=== PATIENT | female | born 1935 | race Caucasian/White ===

== ENCOUNTER 2019-12-20 11:04 | Emergency (ER) | payer OTHER ==
[~2019-12-20] VITALS: Ht 165.1 cm; Wt 73.9 kg
[2019-12-20 11:25] VITALS: BP 118/50
== END 2019-12-20 14:02 | disposition home or self-care (01) ==
LOC: ER 11:04
DX: S52.572A Other intraarticular fracture of lower end of left radius, initial encounter for closed fracture (principal); S93.401A Sprain of unspecified ligament of right ankle, initial encounter; S50.12XA Contusion of left forearm, initial encounter; E78.5 Hyperlipidemia, unspecified; I10 Essential (primary) hypertension; W01.0XXA Fall on same level from slipping, tripping and stumbling without subsequent striking against object, initial encounter; Y93.89 Activity, other specified; Y92.89 Other specified places as the place of occurrence of the external cause; Y99.8 Other external cause status
CPT/HCPCS: 73090; 73110; 73610

== ENCOUNTER 2022-08-24 20:12 | Inpatient (IN) | payer OTHER ==
[~2022-08-24] VITALS: Ht 165.1 cm; Wt 78.0 kg
[2022-08-24 22:03] LABS: Basophils # (auto) 0 10 ^3/uL (0-0.2); Basophils % (auto) 0.2 % (0.0-2.0); Eosinophils # (auto) 0 10 ^3/uL (0-0.8); Eosinophils % (auto) 0.3 % (0.0-7.0); Hematocrit 34.7 % (36.0-46.0); Hemoglobin 11.3 g/dL (12.2-16.2); Lymphocytes # (auto) 0.5 10 ^3/uL (0.4-5.4); Lymphocytes % (auto) 5.3 % (10.0-50.0); Mean Corpuscular Hemoglobin 28.8 pg (28.0-32.0); Mean Corpuscular Hgb Conc. 32.7 g/dL (32.0-36.0); Monocytes # (auto) 0.8 10 ^3/uL (0-1.3); Monocytes % (auto) 8.4 % (0.0-12.0); Neutrophils # (auto) 7.7 10 ^3/uL (1.6-8.6); Neutrophils % (auto) 85.8 % (37.0-80.0); Red Blood Cells 3.94 10^6/uL (4.0-5.20); Red Cell Distribution Width 15.3 % (11.8-14.3)
[2022-08-24 22:18] LABS: Albumin 3.6 g/dL (3.4-5.0); BUN/Creatinine Ratio 17.1; Calcium 8.9 mg/dL (8.5-10.1); Potassium 3.6 mmol/L (3.5-5.1)
[2022-08-24 22:21] LABS: Bilirubin, Total 0.9 mg/dL (0.2-1.0)
[2022-08-24] MEDS ORDERED: dilTIAZem 25 MG/5 ML VIAL IV ONE (23:30)
[2022-08-25] VITALS (46 sets, daily range): BP systolic 73–155; BP diastolic 36–76
[2022-08-25] MEDS ORDERED: dilTIAZem 125mg/125ml BAG KIT 125 ML IV ONE ×2 (00:04→00:15)
[2022-08-25] MEDS ORDERED: ACETAMINOPHEN 325 MG TAB PO ONE (02:00)
[2022-08-25] MEDS ORDERED: dilTIAZem 125mg/125ml BAG KIT 100 ML IV SCH (02:30)
[2022-08-25] MEDS ORDERED: ONDANSETRON HCL 4 MG/2 ML VIAL IV PRN (02:30)
[2022-08-25] MEDS ORDERED: NITROGLYCERIN 0.4 MG SL TAB SL PRN (02:30)
[2022-08-25] MEDS ORDERED: MORPHINE SULFATE INJ 2 MG/ml SYRG IV PRN (02:30)
[2022-08-25 04:01] LABS: Urine Bacteria NONE SEEN /hpf (None Seen); Urine Blood Negative /uL (Negative); Urine Specific Gravity 1.025 (1.001-1.035); Urine WBC 4 /hpf (0 - 5)
[2022-08-25] MEDS: LEVOTHYROXINE SODIUM 25 MCG TAB PO SCH (06:47)
[2022-08-25] MEDS ORDERED: METO25TA93 PO (07:22)
[2022-08-25] MEDS ORDERED: ATOR10TA52 PO (07:22)
[2022-08-25] MEDS ORDERED: FENO48TA12 PO (07:22)
[2022-08-25] MEDS ORDERED: TIOT17SP INH (07:22)
[2022-08-25] MEDS ORDERED: ALBU108A5 INH (07:22)
[2022-08-25] MEDS ORDERED: LEV75T PO (07:22)
[2022-08-25 08:51] LABS: Basophils # (auto) 0.1 10 ^3/uL (0-0.2); Basophils % (auto) 0.7 % (0.0-2.0); Eosinophils # (auto) 0 10 ^3/uL (0-0.8); Eosinophils % (auto) 0.2 % (0.0-7.0); Hemoglobin 11.2 g/dL (12.2-16.2); Lymphocytes # (auto) 0.9 10 ^3/uL (0.4-5.4); Lymphocytes % (auto) 9.7 % (10.0-50.0); Mean Corpuscular Hemoglobin 28.9 pg (28.0-32.0); Mean Corpuscular Hgb Conc. 33.1 g/dL (32.0-36.0); Mean Corpuscular Volume 87.4 fL (80.0-100.0); Monocytes # (auto) 1.1 10 ^3/uL (0-1.3); Monocytes % (auto) 12.4 % (0.0-12.0); Neutrophils # (auto) 7.1 10 ^3/uL (1.6-8.6); Red Blood Cells 3.89 10^6/uL (4.0-5.20); Red Cell Distribution Width 15.4 % (11.8-14.3); White Blood Cell 9.2 10^3/uL (4.4-10.8)
[2022-08-25] MEDS: LOSARTAN POTASSIUM 50 MG TAB PO SCH (09:45)
[2022-08-25 09:59] LABS: Alanine Aminotransferase 18 U/L (13-56); Albumin 3.4 g/dL (3.4-5.0); Alkaline Phosphatase 44 U/L (45-117); Anion Gap 8 (5-15); Aspartate Aminotransferase 20 U/L (15-37); Bilirubin, Total 1.1 mg/dL (0.2-1.0); Blood Urea Nitrogen 32 mg/dL (7-18); Calcium 9.1 mg/dL (8.5-10.1); Carbon Dioxide 31 mmol/L (21-32); Chloride 97 mmol/L (98-107); GFR African American 31 mL/min; GFR Non-African American 25 mL/min; Glucose 107 mg/dL (74-106); Potassium 3.8 mmol/L (3.5-5.1); Sodium 136 mmol/L (136-145); Total Protein 6.7 g/dL (6.4-8.2)
[2022-08-25 10:00] LABS: Cholesterol 140 mg/dL (< 200); HDL Cholesterol 80 mg/dL (40-59); LDL Cholesterol 61 mg/dL (< 100); Magnesium 1.9 mg/dL (1.6-2.6); Triglycerides 42 mg/dL (< 150)
[2022-08-25] MEDS ORDERED: METOPROLOL SUCCINATE XL 50 MG TAB PO SCH (10:00)
[2022-08-25] MEDS ORDERED: PANTOPRAZOLE 40 MG TAB PO SCH (10:00)
[2022-08-25] MEDS: ASPirin 81 mg TAB PO SCH (10:03)
[2022-08-25] MEDS: HEPARIN SODIUM (PORCINE) 5000 UNITS/ML 1ML VIAL SC SCH ×2 (10:13→22:24)
[2022-08-25] MEDS ORDERED: POTASSIUM CHL 20 Meq TABLET PO ONE (11:00)
[2022-08-25] MEDS ORDERED: BACLOFEN 10 MG TAB PO PRN (11:00)
[2022-08-25] MEDS ORDERED: AMIODARONE HCL 200 MG TAB PO ONE (11:45)
[2022-08-25] MEDS: MAGNESIUM SULFATE 1GM/100ML 100 ML IV SCH ×2 (13:18→16:08)
[2022-08-25] MEDS: HCTZ 25 MG TAB PO SCH (14:10)
[2022-08-25] MEDS ORDERED: MAGNESIUM SULFATE 1GM/100ML 100 ML IV SCH (16:00)
[2022-08-25] MEDS ORDERED: ANAS1TAB7 PO (16:42)
[2022-08-25] MEDS ORDERED: AMIODARONE HCL 200 MG TAB PO SCH (22:00)
[2022-08-25] MEDS: ATORVASTATIN 20 MG TAB PO SCH (22:17)
[2022-08-26] VITALS (18 sets, daily range): BP systolic 87–157; BP diastolic 41–107
[2022-08-26 04:00] LABS: Basophils # (auto) 0 10 ^3/uL (0-0.2); Basophils % (auto) 0.2 % (0.0-2.0); Eosinophils # (auto) 0.2 10 ^3/uL (0-0.8); Eosinophils % (auto) 2.4 % (0.0-7.0); Hematocrit 30.6 % (36.0-46.0); Hemoglobin 10.4 g/dL (12.2-16.2); Lymphocytes # (auto) 0.7 10 ^3/uL (0.4-5.4); Lymphocytes % (auto) 9.4 % (10.0-50.0); Mean Corpuscular Hemoglobin 29.2 pg (28.0-32.0); Mean Corpuscular Hgb Conc. 33.8 g/dL (32.0-36.0); Mean Corpuscular Volume 86.3 fL (80.0-100.0); Monocytes # (auto) 0.9 10 ^3/uL (0-1.3); Monocytes % (auto) 12.4 % (0.0-12.0); Neutrophils # (auto) 5.7 10 ^3/uL (1.6-8.6); Neutrophils % (auto) 75.6 % (37.0-80.0); Red Blood Cells 3.55 10^6/uL (4.0-5.20); Red Cell Distribution Width 15.2 % (11.8-14.3); White Blood Cell 7.5 10^3/uL (4.4-10.8)
[2022-08-26 04:23] LABS: Albumin 2.9 g/dL (3.4-5.0); Calcium 8.8 mg/dL (8.5-10.1); Magnesium 2.9 mg/dL (1.6-2.6); Potassium 3.6 mmol/L (3.5-5.1)
[2022-08-26 04:26] LABS: Bilirubin, Total 0.7 mg/dL (0.2-1.0); Total Protein 6.6 g/dL (6.4-8.2)
[2022-08-26] MEDS: LEVOTHYROXINE SODIUM 25 MCG TAB PO SCH (06:12)
[2022-08-26] MEDS: ASPirin 81 mg TAB PO SCH (09:49)
[2022-08-26] MEDS: LOSARTAN POTASSIUM 50 MG TAB PO SCH (09:59)
[2022-08-26] MEDS: HCTZ 25 MG TAB PO SCH (09:59)
[2022-08-26] MEDS: AMIODARONE HCL 200 MG TAB PO SCH (10:00)
[2022-08-26] MEDS: HEPARIN SODIUM (PORCINE) 5000 UNITS/ML 1ML VIAL SC SCH ×2 (10:02→22:02)
[2022-08-26] MEDS ORDERED: cefTRIAXone 1GM/50ML D5W 50 ML IV ONE (11:30)
[2022-08-26] MEDS: ANASTRAZOLE 1 MG TABLET PO SCH (14:00)
[2022-08-26 14:05] LABS: Protein, Urine 23.5 mg/dL (0.0-11.9)
[2022-08-26] MEDS ORDERED: dilTIAZem 25 MG/5 ML VIAL IV ONE (17:30)
[2022-08-26] MEDS: SODIUM CHLORIDE 0.9% 1,000 ML IV SCH (18:00)
[2022-08-26] MEDS ORDERED: POTASSIUM CHL 20 Meq TABLET PO ONE (18:00)
[2022-08-26] MEDS ORDERED: METOPROLOL TARTRATE 1MG/1ML-5ML VIAL IV ONE (21:30)
[2022-08-26] MEDS: ATORVASTATIN 20 MG TAB PO SCH (22:01)
[2022-08-26] MEDS ORDERED: ATROPINE SULFATE 0.4 MG/1 ML VIAL ONE (22:35)
[2022-08-27] VITALS (42 sets, daily range): BP systolic 98–169; BP diastolic 49–100
[2022-08-27] MEDS: SODIUM CHLORIDE 0.9% 1,000 ML IV SCH (03:28)
[2022-08-27 04:15] LABS: Basophils # (auto) 0 10 ^3/uL (0-0.2); Basophils % (auto) 0.5 % (0.0-2.0); Eosinophils # (auto) 0.2 10 ^3/uL (0-0.8); Eosinophils % (auto) 2.9 % (0.0-7.0); Hematocrit 31.2 % (36.0-46.0); Hemoglobin 10.2 g/dL (12.2-16.2); Lymphocytes # (auto) 0.5 10 ^3/uL (0.4-5.4); Lymphocytes % (auto) 7.4 % (10.0-50.0); Mean Corpuscular Hemoglobin 28.9 pg (28.0-32.0); Mean Corpuscular Hgb Conc. 32.7 g/dL (32.0-36.0); Mean Corpuscular Volume 88.4 fL (80.0-100.0); Monocytes # (auto) 0.6 10 ^3/uL (0-1.3); Monocytes % (auto) 9.6 % (0.0-12.0); Neutrophils # (auto) 5.1 10 ^3/uL (1.6-8.6); Neutrophils % (auto) 79.6 % (37.0-80.0); Nucleated Red Blood Cells % 0.1 %; Red Blood Cells 3.53 10^6/uL (4.0-5.20); Red Cell Distribution Width 15.1 % (11.8-14.3); White Blood Cell 6.4 10^3/uL (4.4-10.8)
[2022-08-27 04:29] LABS: BUN/Creatinine Ratio 16.8; Potassium 4.8 mmol/L (3.5-5.1)
[2022-08-27] MEDS: DOPamine 1600MCG/ML D5W 250 ML IV SCH (05:45)
[2022-08-27] MEDS: LEVOTHYROXINE SODIUM 25 MCG TAB PO SCH (06:37)
[2022-08-27] MEDS: cefTRIAXone 1GM/50ML D5W 50 ML IV SCH (09:47)
[2022-08-27] MEDS: ASPirin 81 mg TAB PO SCH (09:55)
[2022-08-27] MEDS: AMIODARONE HCL 200 MG TAB PO SCH ×2 (09:56→10:00)
[2022-08-27] MEDS: HEPARIN SODIUM (PORCINE) 5000 UNITS/ML 1ML VIAL SC SCH ×2 (09:56→22:27)
[2022-08-27] MEDS ORDERED: amLODIPine BESYLATE 5 MG TAB PO SCH (10:00)
[2022-08-27] MEDS: ANASTRAZOLE 1 MG TABLET PO SCH (11:00)
[2022-08-27] MEDS ORDERED: ALBUAER3 IN (11:37)
[2022-08-27] MEDS ORDERED: VANCOMYCIN HCL 1000 MG VL ONE (13:34)
[2022-08-27] MEDS ORDERED: MIDAZOLAM HCL 2MG/2ML 2ml VIAL (1mg/ml) ONE (13:35)
[2022-08-27] MEDS ORDERED: LIDOCAINE 2%HCL (LOCAL ANESTH.) INJ 20ML MDV ONE (13:35)
[2022-08-27] MEDS ORDERED: fentaNYL CITRATE 100 MCG/2 ML VL ONE (13:35)
[2022-08-27] MEDS ORDERED: VANCOMYCIN 1GM/250ML 250 ML IV ONE (13:35)
[2022-08-27] MEDS ORDERED: LOSA100T25 PO (13:39)
[2022-08-27] MEDS ORDERED: NITROGLYCERIN 0.4MG/DOSE SPRAY 4.9GM ONE (13:50)
[2022-08-27] MEDS ORDERED: ENALAPRILAT 1.25 MG/ML-1ML VIAL IV ONE (14:08)
[2022-08-27] MEDS ORDERED: FUROSEMIDE 20 MG/2 ML VIAL ONE (14:18)
[2022-08-27] MEDS ORDERED: ALBUTEROL SULF 2.5 MG/0.5ML(0.5%) NEB SOLN NEB ONE (14:45)
[2022-08-27] MEDS ORDERED: METOPROLOL SUCCINATE XL 50 MG TAB PO ONE (16:30)
[2022-08-27] MEDS: ATORVASTATIN 20 MG TAB PO SCH (22:22)
[2022-08-28] VITALS (15 sets, daily range): BP systolic 110–179; BP diastolic 58–137
[2022-08-28] MEDS: DOPamine 1600MCG/ML D5W 250 ML IV SCH (00:48)
[2022-08-28] MEDS: ACETAMINOPHEN 325 MG TAB PO PRN ×2 (01:50→22:10)
[2022-08-28 04:02] LABS: Basophils # (auto) 0 10 ^3/uL (0-0.2); Basophils % (auto) 0.7 % (0.0-2.0); Eosinophils # (auto) 0.3 10 ^3/uL (0-0.8); Eosinophils % (auto) 6.3 % (0.0-7.0); Hemoglobin 10.5 g/dL (12.2-16.2); Lymphocytes # (auto) 0.6 10 ^3/uL (0.4-5.4); Lymphocytes % (auto) 11.6 % (10.0-50.0); Mean Corpuscular Hemoglobin 28.6 pg (28.0-32.0); Mean Corpuscular Hgb Conc. 32.8 g/dL (32.0-36.0); Mean Corpuscular Volume 87.2 fL (80.0-100.0); Monocytes # (auto) 0.6 10 ^3/uL (0-1.3); Monocytes % (auto) 11.3 % (0.0-12.0); Neutrophils # (auto) 3.8 10 ^3/uL (1.6-8.6); Neutrophils % (auto) 70.1 % (37.0-80.0); Nucleated Red Blood Cells % 0.2 %; Red Blood Cells 3.67 10^6/uL (4.0-5.20); Red Cell Distribution Width 15.1 % (11.8-14.3); White Blood Cell 5.4 10^3/uL (4.4-10.8)
[2022-08-28 04:19] LABS: Potassium 4.2 mmol/L (3.5-5.1)
[2022-08-28 04:25] LABS: Albumin 2.8 g/dL (3.4-5.0); BUN/Creatinine Ratio 18.7; Bilirubin, Total 0.7 mg/dL (0.2-1.0); Magnesium 2.1 mg/dL (1.6-2.6)
[2022-08-28] MEDS: LEVOTHYROXINE SODIUM 25 MCG TAB PO SCH (06:35)
[2022-08-28] MEDS: AMIODARONE HCL 200 MG TAB PO SCH ×2 (10:25→22:08)
[2022-08-28] MEDS: ASPirin 81 mg TAB PO SCH (10:25)
[2022-08-28] MEDS: ANASTRAZOLE 1 MG TABLET PO SCH (10:26)
[2022-08-28] MEDS: cefTRIAXone 1GM/50ML D5W 50 ML IV SCH (10:26)
[2022-08-28] MEDS: HEPARIN SODIUM (PORCINE) 5000 UNITS/ML 1ML VIAL SC SCH (10:27)
[2022-08-28] MEDS: METOPROLOL SUCCINATE XL 50 MG TAB PO SCH (16:07)
[2022-08-28] MEDS: APIXABAN 2.5 MG TAB PO SCH (22:09)
[2022-08-28] MEDS: ATORVASTATIN 20 MG TAB PO SCH (22:09)
[2022-08-29 05:00] VITALS: BP 117/86
[2022-08-29] MEDS: ACETAMINOPHEN 325 MG TAB PO PRN ×2 (05:19→21:35)
[2022-08-29] MEDS: LEVOTHYROXINE SODIUM 25 MCG TAB PO SCH (06:18)
[2022-08-29 08:30] VITALS: BP 110/67
[2022-08-29] MEDS: cefTRIAXone 1GM/50ML D5W 50 ML IV SCH (09:24)
[2022-08-29] MEDS: ASPirin 81 mg TAB PO SCH (09:25)
[2022-08-29] MEDS: APIXABAN 2.5 MG TAB PO SCH ×2 (09:26→21:34)
[2022-08-29] MEDS: METOPROLOL SUCCINATE XL 50 MG TAB PO SCH (09:26)
[2022-08-29] MEDS: AMIODARONE HCL 200 MG TAB PO SCH ×2 (09:26→21:35)
[2022-08-29 14:27] VITALS: BP 118/64
[2022-08-29] MEDS: ANASTRAZOLE 1 MG TABLET PO SCH (14:41)
[2022-08-29] MEDS ORDERED: ASPI-498 OR (16:30)
[2022-08-29] MEDS ORDERED: AMIO200T33 PO (16:30)
[2022-08-29] MEDS ORDERED: METO-6 PO (16:30)
[2022-08-29] MEDS ORDERED: METO-289 PO (16:30)
[2022-08-29] MEDS ORDERED: APIX2.5T PO (16:30)
[2022-08-29] MEDS ORDERED: DOXY-346 PO (16:31)
[2022-08-29 17:30] VITALS: BP 104/60
[2022-08-29] MEDS: ATORVASTATIN 20 MG TAB PO SCH (21:34)
[2022-08-29 22:00] VITALS: BP 113/62
[2022-08-30 05:00] VITALS: BP 122/62
[2022-08-30] MEDS: LEVOTHYROXINE SODIUM 25 MCG TAB PO SCH (06:51)
[2022-08-30] MEDS: ACETAMINOPHEN 325 MG TAB PO PRN ×2 (06:51→22:19)
[2022-08-30 09:00] VITALS: BP 138/63
[2022-08-30] MEDS: ANASTRAZOLE 1 MG TABLET PO SCH (10:00)
[2022-08-30] MEDS ORDERED: LACTULOSE 20Gm/30ML SOLN PO ONE (11:45)
[2022-08-30] MEDS: cefTRIAXone 1GM/50ML D5W 50 ML IV SCH (12:11)
[2022-08-30] MEDS: ASPirin 81 mg TAB PO SCH (12:12)
[2022-08-30] MEDS: METOPROLOL SUCCINATE XL 50 MG TAB PO SCH (12:12)
[2022-08-30] MEDS: AMIODARONE HCL 200 MG TAB PO SCH ×2 (12:13→22:20)
[2022-08-30] MEDS: APIXABAN 2.5 MG TAB PO SCH ×2 (12:13→22:20)
[2022-08-30 13:00] VITALS: BP 129/68
[2022-08-30 16:30] VITALS: BP 124/64
[2022-08-30] MEDS: ATORVASTATIN 20 MG TAB PO SCH (22:20)
[2022-08-31 05:02] VITALS: BP 138/62
[2022-08-31] MEDS: LEVOTHYROXINE SODIUM 25 MCG TAB PO SCH (06:25)
[2022-08-31] MEDS: AMIODARONE HCL 200 MG TAB PO SCH (09:08)
[2022-08-31] MEDS: APIXABAN 2.5 MG TAB PO SCH (09:08)
[2022-08-31] MEDS: ANASTRAZOLE 1 MG TABLET PO SCH (09:09)
[2022-08-31] MEDS: cefTRIAXone 1GM/50ML D5W 50 ML IV SCH (09:09)
[2022-08-31] MEDS: ASPirin 81 mg TAB PO SCH (09:09)
[2022-08-31] MEDS: METOPROLOL SUCCINATE XL 50 MG TAB PO SCH (09:10)
[2022-08-31 09:23] VITALS: BP 144/70
[2022-08-31 14:59] VITALS: BP 136/72
[2022-08-31 16:23] VITALS: BP 136/72
[2022-08-31 17:01] VITALS: BP 124/74
== END 2022-08-31 18:09 | disposition home or self-care (01) | DRG 242 ==
LOC: EDUNIT# 20:12 → EDBD 20:12 → ER 20:16 → ICU WEST 08-25 02:23 → TELE-CENTR 08-28 13:00 → CENTRAL 08-29 18:48
PROVIDERS: ADMIT Nurse Practitioner; ATTEND Nurse Practitioner
PROC: 0JH606Z Insertion of Pacemaker, Dual Chamber into Chest Subcutaneous Tissue and Fascia, Open Approach (ICD-10-PCS; principal; 2022-08-27)
PROC: 02H63JZ Insertion of Pacemaker Lead into Right Atrium, Percutaneous Approach (ICD-10-PCS; 2022-08-27)
PROC: 02HK3JZ Insertion of Pacemaker Lead into Right Ventricle, Percutaneous Approach (ICD-10-PCS; 2022-08-27)
DX: I49.5 Sick sinus syndrome (principal); I21.A1 Myocardial infarction type 2; N17.0 Acute kidney failure with tubular necrosis; I13.0 Hypertensive heart and chronic kidney disease with heart failure and stage 1 through stage 4 chronic kidney disease, or unspecified chronic kidney disease; N39.0 Urinary tract infection, site not specified; J96.10 Chronic respiratory failure, unspecified whether with hypoxia or hypercapnia; I24.9 Acute ischemic heart disease, unspecified; I48.0 Paroxysmal atrial fibrillation; D63.1 Anemia in chronic kidney disease; N18.9 Chronic kidney disease, unspecified; E07.9 Disorder of thyroid, unspecified; E78.5 Hyperlipidemia, unspecified; E88.09 Other disorders of plasma-protein metabolism, not elsewhere classified; Z20.822 Contact with and (suspected) exposure to COVID-19; Z60.2 Problems related to living alone; I27.29 Other secondary pulmonary hypertension; Z96.89 Presence of other specified functional implants; I71.40 Abdominal aortic aneurysm, without rupture, unspecified; J44.9 Chronic obstructive pulmonary disease, unspecified; R73.03 Prediabetes; Z85.3 Personal history of malignant neoplasm of breast; Z86.79 Personal history of other diseases of the circulatory system; Z95.5 Presence of coronary angioplasty implant and graft; Z79.899 Other long term (current) drug therapy
CPT/HCPCS: 33208; 36415; 71045; 71260; 74177; 76775; 80048; 80053; 80061; 81001; 82306; 82570; 83036; 83735; 83880; 83970; 84100; 84156; 84300; 84443; 84484; 85025; 85610; 85730; 87081; 87086; 87426; 93005; 93306; 93970; 96365; 99152; 99291; C1785; G0378; J0461; J0696; J2250